=== PATIENT | female | born 1960 | race Caucasian/White ===

== ENCOUNTER 2017-06-09 11:37 | Emergency (ER) | payer OTHER ==
[~2017-06-09] VITALS: Ht 162.6 cm; Wt 88.0 kg
[2017-06-09 11:40] VITALS: BP 125/74; PULSE 102; RESP 18; TEMP 97.2; O2SAT 96
[2017-06-09 12:05] VITALS: BP 124/63; PULSE 62; RESP 16; TEMP 97.9; O2SAT 100
[2017-06-09] MEDS ORDERED: OMEP20TA93 PO (13:14)
[2017-06-09] MEDS ORDERED: LISI-515 PO (13:14)
[2017-06-09] MEDS ORDERED: XANA1TAB2 PO (13:14)
[2017-06-09] MEDS ORDERED: PRAV20TA2 PO (13:14)
[2017-06-09] MEDS ORDERED: BACT400T PO (13:14)
--- NOTE | 2017-06-09 13:47 | PD ---
HPI Chief Complaint: Medical Clearance Time Seen by Provider: 13:05 Travel History International Travel<30 days: No Contact w/Intl Traveler<30days: No Traveled to known affect area: No History of Present Illness HPI 57-year-old female with history of depression presents to the emergency room under Harding act initiated by her psychiatrist, Dr. Alfaro?. She went to her psychiatrist's office yesterday for her first appointment after being referred by her primary care physician. She apparently told her psychiatrist that she was going to cut her wrists. She was home today when [facility] placed her under a Harding act and brought her to the emergency room. Patient does report suicidal ideation at this time stating that she would have killed herself a long time ago if she was able to. States she does not want to leave her because he is a good man which is the only thing keeping her alive. She does not have a specific plan. Denies alcohol use because it just makes her cry. Denies illicit drug use. States she has a license for medical marijuana which helps her depression and helps her sleep but the weight at the dispensary is always too long and they never have marijuana to give to her. States most of her depression is from losing her daughter 2-1/2 years ago to liver failure. She has significant family history of mental disease. Her brother committed suicide. Her daughter was chronically mentally ill. She denies any medical complaints at this time. Patient has history of prediabetes , hypertension, and hypercholesterolemia. PFSH Past Medical History Anxiety: Yes High Cholesterol: Yes Diabetes: Yes Patient Takes Glucophage: No GERD: Yes Hypertension: Yes ?: Not Past Surgical History Cholecystectomy: Yes Eye Surgery: Yes (LASIK) Other Surgery: Yes (TUMMY TUCK) Social History Alcohol Use: Yes (occassionally) Tobacco Use: No Substance Use: No Allergies-Medications (Allergen,Severity, Reaction): Coded Allergies: No Known Allergies (Unverified , 06/09/17) Reported Meds & Prescriptions Reported Meds & Active Scripts Active Reported Bactrim (Sulfamethoxazole-Trimethoprim) 400-80 Mg Tab 1 Tab PO BID Xanax (Alprazolam) 1 Mg Tab 1 Mg PO Q8H PRN Omeprazole 20 Mg Tab 20 Mg PO BID Pravastatin 20 Mg Tab 20 Mg PO DAILY Lisinopril 20 Mg Tab 20 Mg PO DAILY Review of Systems Except as stated in HPI: all other systems reviewed are Neg Physical Exam Narrative GENERAL: Well-nourished, well-developed female no acute distress. Afebrile. Ambulatory. SKIN: Focused skin assessment warm/dry. HEAD: Normocephalic. EYES: No scleral icterus. No injection or drainage. NECK: Supple, trachea midline. No JVD or lymphadenopathy. CARDIOVASCULAR: Regular rate and rhythm without murmurs, gallops, or rubs. RESPIRATORY: Breath sounds equal bilaterally. No accessory muscle use. PSYCHIATRIC: No delusional thought processes. No hallucinations. Normal affect. Depressed mood. Data Data Last Documented VS Vital Signs Date Time Temp Pulse Resp B/P (MAP) Pulse Ox O2 Delivery O2 Flow Rate FiO2 06/09/17 11:40 97.2 102 18 125/74 (91) 96 Orders Orders Complete Blood Count With Diff (06/09/17 12:55) Comprehensive Metabolic Panel (06/09/17 12:55) Thyroid Stimulating Hormone (06/09/17 12:55) Psych Screen (06/09/17 12:55) Drug Screen, Random Urine (06/09/17 12:55) Labs Laboratory Tests Test 06/09/17 13:37 White Blood Count 13.3 TH/MM3 Red Blood Count 4.93 MIL/MM3 Hemoglobin 9.7 GM/DL Hematocrit 30.2 % Mean Corpuscular Volume 61.2 FL Mean Corpuscular Hemoglobin 19.6 PG Mean Corpuscular Hemoglobin Concent 32.0 % Red Cell Distribution Width 17.7 % Platelet Count 643 TH/MM3 Mean Platelet Volume 6.7 FL Neutrophils (%) (Auto) 55.8 % Lymphocytes (%) (Auto) 33.7 % Monocytes (%) (Auto) 7.4 % Eosinophils (%) (Auto) 2.1 % Basophils (%) (Auto) 1.0 % Neutrophils # (Auto) 7.4 TH/MM3 Lymphocytes # (Auto) 4.5 TH/MM3 Monocytes # (Auto) 1.0 TH/MM3 Eosinophils # (Auto) 0.3 TH/MM3 Basophils # (Auto) 0.1 TH/MM3 CBC Comment DIFF FINAL Differential Comment Blood Urea Nitrogen 13 MG/DL Creatinine 0.67 MG/DL Random Glucose 78 MG/DL Total Protein 7.7 GM/DL Albumin 3.4 GM/DL Calcium Level 9.3 MG/DL Alkaline Phosphatase 123 U/L Aspartate Amino Transf (AST/SGOT) 74 U/L Alanine Aminotransferase (ALT/SGPT) 103 U/L Total Bilirubin 0.2 MG/DL Sodium Level 140 MEQ/L Potassium Level 3.9 MEQ/L Chloride Level 107 MEQ/L Carbon Dioxide Level 21.9 MEQ/L Anion Gap 11 MEQ/L Estimat Glomerular Filtration Rate 90 ML/MIN Thyroid Stimulating Hormone 3rd Gen 0.402 uIU/ML Urine Opiates Screen NEG Urine Barbiturates Screen NEG Urine Amphetamines Screen NEG Urine Benzodiazepines Screen POS Urine Cocaine Screen NEG Urine Cannabinoids Screen POS MDM Medical Decision Making Medical Screen Exam Complete: Yes Emergency Medical Condition: Yes Medical Record Reviewed: Yes Differential Diagnosis Suicidal ideation, depression, bipolar disorder Narrative Course 57-year-old female presents to the emergency room for evaluation of suicidal ideation. Patient was placed under a Harding act at the request of her psychiatrist and brought to the emergency room by [place] [employer]. Patient is crying throughout labs history and physical exam. States most of her depression is from losing her daughter 2-1/2 years ago. She reports suicidal ideation but does not have a specific plan at the moment. She told her psychiatrist she would slit her wrists. CBC shows moderate anemia. CMP is only remarkable for mildly elevated liver enzymes. Toxicology screen is negative. Patient is medically cleared for psychiatric evaluation. Condition: Stable Medina Segura Jun 09, 2017 13:47
[2017-06-09 13:51] LABS: AUTOMATED NEUTROPHIL # 7.4 TH/MM3 (1.8-7.7); BASOPHIL # 0.1 TH/MM3 (0-0.2); EOSINOPHIL # 0.3 TH/MM3 (0-0.4); EOSINOPHIL % 2.1 % (0.0-4.0); HEMATOCRIT 30.2 % (35.0-46.0); HEMOGLOBIN 9.7 GM/DL (11.6-15.3); LYMPH % 33.7 % (9.0-44.0); LYMPHOCYTE # 4.5 TH/MM3 (1.0-4.8); MEAN CELL VOLUME 61.2 FL (80.0-100.0); MEAN CORPUSCULAR HEMOGLOBIN 19.6 PG (27.0-34.0); MEAN PLATELET VOLUME 6.7 FL (7.0-11.0); MONO % 7.4 % (0.0-8.0); NEUT % 55.8 % (16.0-70.0); PLATELET COUNT 643 TH/MM3 (150-450); RED BLOOD COUNT 4.93 MIL/MM3 (4.00-5.30); RED CELL DISTRIBUTION WIDTH 17.7 % (11.6-17.2); WHITE BLOOD COUNT 13.3 TH/MM3 (4.0-11.0)
[2017-06-09 14:16] LABS: ALBUMIN 3.4 GM/DL (3.4-5.0); AST (GOT) 74 U/L (15-37); BICARBONATE 21.9 MEQ/L (21.0-32.0); BLOOD UREA NITROGEN 13 MG/DL (7-18); CALCIUM 9.3 MG/DL (8.5-10.1); CHLORIDE 107 MEQ/L (98-107); CREATININE 0.67 MG/DL (0.50-1.00); GLOMERULAR FILTRATION RATE 90 ML/MIN (>89); GLUCOSE,RANDOM 78 MG/DL (74-106); SODIUM (NA) 140 MEQ/L (136-145)
[2017-06-09 14:27] LABS: ALKALINE PHOSPHATASE 123 U/L (45-117); ALT (GPT) 103 U/L (10-53); TOTAL BILIRUBIN ADULT 0.2 MG/DL (0.2-1.0); TOTAL PROTEIN 7.7 GM/DL (6.4-8.2)
[2017-06-09 16:30] VITALS: BP 130/72; PULSE 98; RESP 18; TEMP 99.2; O2SAT 97
[2017-06-09] MEDS ORDERED: NAPROXEN 500 MG TAB PO ONE (20:45)
[2017-06-09 22:46] VITALS: BP 139/76; PULSE 101; RESP 18; O2SAT 98
[2017-06-10 06:30] VITALS: BP 145/71; PULSE 90; RESP 18; O2SAT 99
--- NOTE | 2017-06-10 15:03 | PD ---
History of Present Illness Chief Complaint: Medical Clearance Time Seen by Provider: 14:15 Travel History International Travel<30 Days: No Contact w/Intl Traveler<30days: No Known affected area: No Legal Status Legal Status: Harding Act Harding Act Signed By: Anya Ewing History of Present Illness: History of Present Illness HPI 57-year-old, female with history of depression presents to the emergency room under Harding act initiated by law enforcement. The Harding act alleges that the patient reported to her doctor that she had suicidal ideation with intent to cut her wrist. In reviewing the events, the patient saw the psychiatrist on Thursday after being referred by her primary care physician. She apparently told that psychiatrist that she was going to cut her wrists but was allowed to go home with a plan of having a therapist visit her on Thursday. On Thursday she was home when the police arrived and placed her under a Harding act. The patient did not make any attempt at harming herself. The patient has no previous history of suicide attempt. The patient was monitored here in secure environment over extended period of time and presented no behavioral concerns and no suicidality. Electronic medical record is reviewed. No previous contact with [facility]. Nursing staff has obtained collateral information from the and he has no concerns for her safety if she were to be discharge. Patient is seen in [facility] pod. Patient is stressed in hospital [facility] with adequate hygiene. She is calm, engaging and cooperative. Her speech is clear, logical. Her affect is congruent to mood. Tearful at times when talking about the of her daughter 3 years ago. Patient's mood is sad as well as anxious about being here. She has been taking care of her who had a replacement 3 weeks ago and is worried about him. There is no evidence of any psychosis, no miracle, no hypomania. She denies any suicidal or homicidal ideation, intent or plan. She is cognitively intact. Patient is future oriented. She wants to be able to go home and start new medication that was prescribed to her by her outpatient psychiatrist on Thursday. Remainder of psychiatric review systems is negative. PFSH Past Medical History Anxiety: Yes High Cholesterol: Yes Diabetes: Yes Patient Takes Glucophage: No GERD: Yes Hypertension: Yes ?: Not Past Surgical History Cholecystectomy: Yes Eye Surgery: Yes (LASIK) Other Surgery: Yes (TUMMY TUCK) Psychiatric History Psychiatric History Hx Psychiatric Treatment: HX OF DEPRESSION, ANXIETY. No history of inpatient psychiatric treatment. No previous suicide attempts. History of Inpatient Treatment: No Guns or firearms in home: No Social History Born and raised in [place]. 40 years. Has 1 daughter that 3 years ago. Lives with her . She is unemployed. Hx Alcohol Use: Yes (occassionally) Hx Tobacco Use: No Hx Substance Use: No (PRESCRIBED MEDICAL MARIJUANA) Substance Use Type: Marijuana Hx of Substance Use Treatment: No Family Psychiatric History One brother committed suicide. Allergies-Medications (Allergen,Severity, Reaction): Coded Allergies: No Known Allergies (Unverified , 06/09/17) Reported Meds & Prescriptions Reported Meds & Active Scripts Active Reported Bactrim (Sulfamethoxazole-Trimethoprim) 400-80 Mg Tab 1 Tab PO BID Xanax (Alprazolam) 1 Mg Tab 1 Mg PO Q8H PRN Omeprazole 20 Mg Tab 20 Mg PO BID Pravastatin 20 Mg Tab 20 Mg PO DAILY Lisinopril 20 Mg Tab 20 Mg PO DAILY Review of Systems Ears, nose, mouth, throat: COMPLAINS OF: Hearing loss Psychiatric: COMPLAINS OF: Anxiety, Depression Except as stated in HPI: all other systems reviewed are Neg Mental Status Examination Appearance: Appropriate Consciousness: Alert Orientation: x4 Motor Activity: Normal gait Speech: Unremarkable Language: Adequate Fund of Knowledge: Adequate Memory: Unremarkable Mood: Appropriate Affect: Appropriate Thought Process & Associations: Intact, Logical, Goal directed Thought Content: Appropriate Hallucination Type: None Delusion Type: None Suicidal Ideation: No Suicidal Plan: No Suicidal Intention: No Homicidal Ideation: No Homicidal Plan: No Homicidal Intention: No Insight: Adequate Judgment: Adequate [facility] Medical Decision Making Medical Record Reviewed: Yes Assessment/Plan 57-year-old, female with history of depression presents to the emergency room under Harding act initiated by law enforcement. The Harding act alleges that the patient reported to her doctor that she had suicidal ideation with intent to cut her wrist. In reviewing the events, the patient saw the psychiatrist on Thursday after being referred by her primary care physician. She apparently told that psychiatrist that she was going to cut her wrists but was allowed to go home with a plan of having a therapist visit her on Thursday. On Thursday she was home when the police arrived and placed her under a Harding act. The patient did not make any attempt at harming herself. The patient has no previous history of suicide attempt. The patient was monitored here in secure environment over extended period of time and presented no behavioral concerns and no suicidality. Collateral information was obtained by staff. Her has no concerns for her safety if she were to be discharge. The patient is future oriented and wants to initiate new antidepressant that was prescribed on Thursday. She has adequate protective factors. She has a 23-year-old granddaughter that she states needs to be alive for. She also helps take care of her which she describes as her best friend. At this time the patient does not present any evidence of unstable mental illness as defined under the Harding act. She is cognitively intact. She contracts for safety as a general safety plan. She is provided psychoeducation. The Harding act is lifted. Psychiatrically clear for discharge from ED. Orders Orders Naproxen (Naprosyn) (06/09/17 20:45) Diet Regular Basic (06/10/17 Breakfast) Diet Regular Basic (06/10/17 Lunch) Results Vital Signs Date Time Temp Pulse Resp B/P (MAP) Pulse Ox O2 Delivery O2 Flow Rate FiO2 06/10/17 06:30 90 18 145/71 (95) 99 Room Air 06/09/17 22:46 101 18 139/76 (97) 98 Room Air 06/09/17 16:30 99.2 98 18 130/72 (91) 97 Room Air Diagnosis Primary Impression: Depressive disorder Psychiatrically Cleared: Yes Med/ Other Pt Specific Info: No Change to Meds Disposition: 01 DISCHARGE HOME Condition: Stable Hanh Reecedys Dionneterry LAWRENCE Jun 10, 2017 15:03
--- NOTE | 2017-06-10 15:29 | PD ---
Physical Exam Date Seen by Provider: Jun 10, 2017 Time Seen by Provider: 15:27 Data Data Last Documented VS Vital Signs Date Time Temp Pulse Resp B/P (MAP) Pulse Ox O2 Delivery O2 Flow Rate FiO2 06/10/17 06:30 90 18 145/71 (95) 99 Room Air 06/09/17 16:30 99.2 Orders Orders Complete Blood Count With Diff (06/09/17 12:55) Comprehensive Metabolic Panel (06/09/17 12:55) Thyroid Stimulating Hormone (06/09/17 12:55) Psych Screen (06/09/17 12:55) Drug Screen, Random Urine (06/09/17 12:55) Naproxen (Naprosyn) (06/09/17 20:45) Diet Regular Basic (06/10/17 Breakfast) Diet Regular Basic (06/10/17 Lunch) Ed Discharge Order (06/10/17 15:27) Labs Laboratory Tests Test 06/09/17 13:37 White Blood Count 13.3 TH/MM3 Red Blood Count 4.93 MIL/MM3 Hemoglobin 9.7 GM/DL Hematocrit 30.2 % Mean Corpuscular Volume 61.2 FL Mean Corpuscular Hemoglobin 19.6 PG Mean Corpuscular Hemoglobin Concent 32.0 % Red Cell Distribution Width 17.7 % Platelet Count 643 TH/MM3 Mean Platelet Volume 6.7 FL Neutrophils (%) (Auto) 55.8 % Lymphocytes (%) (Auto) 33.7 % Monocytes (%) (Auto) 7.4 % Eosinophils (%) (Auto) 2.1 % Basophils (%) (Auto) 1.0 % Neutrophils # (Auto) 7.4 TH/MM3 Lymphocytes # (Auto) 4.5 TH/MM3 Monocytes # (Auto) 1.0 TH/MM3 Eosinophils # (Auto) 0.3 TH/MM3 Basophils # (Auto) 0.1 TH/MM3 CBC Comment DIFF FINAL Differential Comment Blood Urea Nitrogen 13 MG/DL Creatinine 0.67 MG/DL Random Glucose 78 MG/DL Total Protein 7.7 GM/DL Albumin 3.4 GM/DL Calcium Level 9.3 MG/DL Alkaline Phosphatase 123 U/L Aspartate Amino Transf (AST/SGOT) 74 U/L Alanine Aminotransferase (ALT/SGPT) 103 U/L Total Bilirubin 0.2 MG/DL Sodium Level 140 MEQ/L Potassium Level 3.9 MEQ/L Chloride Level 107 MEQ/L Carbon Dioxide Level 21.9 MEQ/L Anion Gap 11 MEQ/L Estimat Glomerular Filtration Rate 90 ML/MIN Thyroid Stimulating Hormone 3rd Gen 0.402 uIU/ML Urine Opiates Screen NEG Urine Barbiturates Screen NEG Urine Amphetamines Screen NEG Urine Benzodiazepines Screen POS Urine Cocaine Screen NEG Urine Cannabinoids Screen POS MDM Medical Record Reviewed: Yes Supervised Visit with MILIND: No Narrative Course 57-year-old female presented previously under a Harding act initiated by her psychiatrist. She was medically cleared yesterday. Vitals have been stable overnight. She was seen by psychiatric nurse practitioner today and Harding act was lifted. Patient has not felt to be a threat to herself or others at this time. She is stable for outpatient follow-up. Diagnosis Primary Impression: Depressive disorder Additional Impression: Anemia Qualified Codes: D64.9 - Anemia, unspecified Referrals: Primary Care Physician Additional Instruction: Follow-up per psychiatrist's recommendations. Return for worsening symptoms. Disposition: 01 DISCHARGE HOME Condition: Stable Medina Segura Jun 10, 2017 15:28
[2017-06-10 16:33] VITALS: BP 127/64
== END 2017-06-10 16:34 | disposition home or self-care (01) ==
LOC: NEPD 11:37 → NEDAMB 06-10 16:34
DX: F32.9 Major depressive disorder, single episode, unspecified (principal); D64.9 Anemia, unspecified; F12.90 Cannabis use, unspecified, uncomplicated; E78.00 Pure hypercholesterolemia, unspecified; K21.9 Gastro-esophageal reflux disease without esophagitis; I10 Essential (primary) hypertension; Z79.899 Other long term (current) drug therapy
CPT/HCPCS: 80053; 80307; 84443; 85025; 99284